=== PATIENT | male | born 1995 | race Caucasian/White ===

== ENCOUNTER 2017-07-20 06:05 | Emergency (ER) | payer OTHER ==
[2017-07-20 06:47] VITALS: BMI 25.7
--- NOTE | 2017-07-20 07:22 | PDOC ---
History of Present Illness - General Chief Complaint: Pain Stated Complaint: EAR AND JAR PAIN Time Seen by Provider: 07/20/17 07:07 - History of Present Illness Initial Comments: 07/20/17 07:22 Mr. 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 He reports the pain as 8/10 and says that he has had this one other time before when he was 19 (3 years ago). He reports being admitted for this problem previously. He also reports 5 episodes of nausea with vomiting this morning. Also endorses chills this AM. The patient denies chest pain, shortness of breath, and headache. Denies diarrhea and constipation. Denies dysuria, frequency, urgency and hematuria. Allergies: Denies Past surgical history:Denies Social history: 1/2 ppd Past History - Past Medical History Allergies/Adverse Reactions: Allergies Allergy/AdvReac Type Severity Reaction Status Date / Time No Known Allergies Allergy Verified 07/20/17 06:44 Home Medications: Ambulatory Orders Amoxicillin/Potassium Clav [Augmentin 875-125 Tablet] 1 each PO BID #20 tablet 07/20/17 Ciprofloxacin HCl/Dexameth [Ciprodex Otic Suspension] 4 drop OS BID #1 bottle Psychiatric Problems: Yes (bipolar and depression) - Suicide/Smoking/Psychosocial Hx Smoking History: Never smoked Have you smoked in the past 12 months: No Number of Cigarettes Smoked Daily: 10 Information on smoking cessation initiated: No Hx Alcohol Use: No Drug/Substance Use Hx: No Review of Systems - Review of Systems Comments:: 07/20/17 07:22 GENERAL/CONSTITUTIONAL: +Endorses fever /chills. No weakness. HEAD, EYES, EARS, NOSE AND THROAT: +Left ear pain with clear discharge and Left jaw pain. No change in vision. No sore throat. CARDIOVASCULAR: No chest pain or shortness of breath RESPIRATORY: No cough, wheezing, or hemoptysis. GASTROINTESTINAL: + Endorses nausea/ vomiting (5x), no diarrhea or constipation. GENITOURINARY: No dysuria, frequency, or change in urination. MUSCULOSKELETAL: No joint or muscle swelling or pain. No back pain. SKIN: No rash NEUROLOGIC: No headache, vertigo, loss of consciousness, or change in strength/ sensation. ENDOCRINE: No increased thirst. No abnormal weight change HEMATOLOGIC/LYMPHATIC: No anemia, easy bleeding, or history of blood clots. ALLERGIC/IMMUNOLOGIC: No hives or skin allergy. *Physical Exam - Vital Signs Last Vital Signs Temp Pulse Resp BP Pulse Ox 98.6 F 75 14 139/84 100 07/20/17 06:44 07/20/17 06:44 07/20/17 06:44 07/20/17 06:44 07/20/17 06:44 - Physical Exam Comments: 07/20/17 07:22 GENERAL: Awake, alert, and fully oriented, in no acute distress HEAD: No signs of trauma, normocephalic, atraumatic EYES: PERRLA, EOMI, sclera anicteric, conjunctiva clear ENT: +Some swelling around L mandible. Some swelling around Auricles normal inspection, hearing grossly normal, nares patent, oropharynx clear without exudates. Moist mucosa NECK: Normal ROM, supple, no lymphadenopathy, JVD, or masses LUNGS: No distress, speaks full sentences, clear to auscultation bilaterally HEART: Regular rate and rhythm, normal S1 and S2, no murmurs, rubs or gallops, peripheral pulses normal and equal bilaterally. ABDOMEN: Soft, nontender, normoactive bowel sounds. No guarding, no rebound. No masses EXTREMITIES: Normal inspection, Normal range of motion, no edema. No clubbing or cyanosis. NEUROLOGICAL: Cranial nerves II through XII grossly intact. Normal speech, normal gait, no focal sensorimotor deficits SKIN: Warm, Dry, normal turgor, no rashes or lesions noted. ED Treatment Course - LABORATORY CBC & Chemistry Diagram: 07/20/17 07:45 07/20/17 07:45 Medical Decision Making - Medical Decision Making Patient history concerning for mastoiditis with history of 1 week drainage and severe ear/jaw pain reported 06/04. CT ordered revealed otitis externa without abscess. Will d/c with follow up to [facility] appt for 2 days. Appt. made with them. *DC/Admit/Observation/Transfer Diagnosis at time of Disposition: Otitis externa Qualifiers: Otitis externa type: unspecified type Chronicity: acute Laterality: left Qualified Code(s): H60.502 - Unspecified acute noninfective otitis externa, left ear - Discharge Dispostion Disposition: HOME - Prescriptions Prescriptions: Amoxicillin/Potassium Clav [Augmentin 875-125 Tablet] 1 each PO BID #20 tablet Ciprofloxacin HCl/Dexameth [Ciprodex Otic Suspension] 4 drop OS BID #1 bottle - Patient Instructions Printed Discharge Instructions: DI for Otitis Externa
[2017-07-20] MEDS ORDERED: ONDANSETRON 4 MG/2 ML VIAL IVPUSH ONE (07:25)
[2017-07-20] MEDS ORDERED: SODIUM CHLORIDE 1,000 ML IV STA (07:27)
[2017-07-20] MEDS ORDERED: ONDANSETRON 4 MG TABLET PO ONE (07:28)
[2017-07-20] MEDS ORDERED: KETOROLAC TROMETHAMINE 10 MG TABLET PO ONE (07:29)
[2017-07-20] MEDS ORDERED: morphine CARPU-JECT 4 MG/1 ML DISP.SYRIN IVPUSH ONE (07:50)
[2017-07-20] MEDS ORDERED: ONDANSETRON *ODT* 4 MG TABLET ONE (07:51)
[2017-07-20] MEDS ORDERED: morphine CARPU-JECT 4 MG/1 ML DISP.SYRIN ONE (07:54)
[2017-07-20 08:01] LABS: BASOPHIL 0.3 % (0-2.0); EOSINOPHIL 0.4 % (0-4.5); MCH 29.2 pg (25.7-33.7); MCHC 33.2 g/dl (32.0-35.9); MEAN CELL VOLUME 88.2 fl (80-96); MEAN PLT VOLUME 7.5 fl (7.5-11.1); NEUTROPHILS 76.2 % (42.8-82.8); PLATELET COUNT 321 K/MM3 (134-434); RDW 14.1 % (11.9-15.9); WHITE BLOOD COUNT 12.2 K/mm3 (4.0-10.0)
[2017-07-20 08:20] LABS: ALBUMIN 3.6 g/dl (3.4-5.0); ALK PHOS 189 U/L (45-117); ANION GAP 3 (8-16); BILIRUBIN,TOTAL 0.5 mg/dL (0.2-1.0); CALCIUM 8.7 mg/dL (8.5-10.1); CO2 32 mmol/L (21-32); CREATININE 0.8 mg/dL (0.7-1.3); GLUCOSE,RANDOM 108 mg/dL (74-106); SGOT/AST 236 U/L (15-37); TOT PROT 7.4 g/dl (6.4-8.2)
[2017-07-20 08:29] LABS: SGPT/ALT 787 U/L (12-78)
[2017-07-20] MEDS ORDERED: AMOX TR/POT CLAV 875MG/125MG TABLETS (FP) PO ONE (10:55)
[2017-07-20] MEDS ORDERED: AMOX TR/POT CLAV 875MG/125MG TABLETS (FP) ONE (11:08)
[2017-07-20 13:54] VITALS: BP 131/73; PULSE 98; TEMP 99.5
== END 2017-07-20 13:37 | disposition home or self-care (01) ==
LOC: JER 06:05
PROC: 3E0337Z Introduction of Electrolytic and Water Balance Substance into Peripheral Vein, Percutaneous Approach (ICD-10-PCS; principal; 2017-07-20)
PROC: 3E033GC Introduction of Other Therapeutic Substance into Peripheral Vein, Percutaneous Approach (ICD-10-PCS; 2017-07-20)
PROC: 3E033NZ Introduction of Analgesics, Hypnotics, Sedatives into Peripheral Vein, Percutaneous Approach (ICD-10-PCS; 2017-07-20)
DX: H60.502 Unspecified acute noninfective otitis externa, left ear (principal)
CPT/HCPCS: 36415; 70470-TC; 70481-TC; 80053; 83605; 85025; 85651; 87040; 96361; 96374; 99282-25

== ENCOUNTER 2017-07-24 19:43 | Emergency (ER) | payer OTHER ==
[2017-07-24 19:48] VITALS: BP 146/94; PULSE 94; TEMP 98.2; BMI 20.9
--- NOTE | 2017-07-24 20:34 | PDOC ---
History of Present Illness - General Chief Complaint: Ear Problem Stated Complaint: EAR PAIN Time Seen by Provider: 07/24/17 19:50 - History of Present Illness Initial Comments: 07/24/17 20:21 CHIEF COMPLAINT: ear pain HISTORY OF PRESENT ILLNESS: 22 yo M with hx of HIV (last VL undetectable 6 mo ago) presents to fast track with pain to R ear. 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 Patient reports that he now has severe pain to his RIGHT ear that is "ten times worse" than it was four days ago, and he has severe pain to his R jaw. PAST MEDICAL HISTORY: HIV FAMILY HISTORY: Denies SOCIAL HISTORY: Denies tobacco, alcohol, illicit drug use. SURGICAL HISTORY: Denies ALLERGIES: No known drug allergies REVIEW OF SYSTEMS General/Constitutional: Denies fever or chills. Denies weakness, weight change. HEENT: R ear pain extending behind ear and to jaw. Denies change in vision. Denies ear pain or discharge. Denies sore throat. Cardiovascular: Denies chest pain or shortness of breath. Respiratory: Denies cough, wheezing, or hemoptysis. Gastrointestinal: Denies nausea, vomiting, diarrhea or constipation. Denies rectal bleeding. Genitourinary: Denies dysuria, frequency, or change in urination. Musculoskeletal: Denies joint or muscle swelling or pain. Denies neck or back pain. Skin and breasts: Denies rash or easy bruising. Neurologic: Denies headache, vertigo, loss of consciousness, or loss of sensation. PHYSICAL EXAM General Appearance: Well-appearing, appropriately dressed. No apparent distress , no intoxication. HEENT: Marked erythema and swelling to R auditory canal with marked tenderness posterior to ear as well as to jaw. R TM not visible due to severe swelling of canal. L ear TM mildly erythematous with minimal swelling of L auditory canal. EOMI, PERRLA, normal ENT inspection, normal voice , pharynx normal. No conjunctival pallor. No photophobia, scleral icterus. Respiratory/Chest: Lungs CTAB. Cardiovascular: RRR. S1, S2. Musculoskeletal/Extremities: Normal inspection. FROM of all extremities, normal capillary refill. Pelvis Stable. No CVA tenderness. No tenderness to extremities, pedal edema, swelling, erythema or deformity. Integumentary: Appropriate color, dry, warm. No cyanosis, erythema, jaundice or rash Neurologic: cleat thrower II-XII intact. Fully oriented, alert. Appropriate mood/affect. Motor strength 5/5. No appreciable EOM palsy, facial droop or sensory deficit. 07/24/17 21:10 Past History - Past Medical History Allergies/Adverse Reactions: Allergies Allergy/AdvReac Type Severity Reaction Status Date / Time No Known Allergies Allergy Verified 07/24/17 19:48 Home Medications: Ambulatory Orders Abacavir/Dolutegravir/Lamivudi [Triumeq Tablet] 1 each PO ASDIR 07/24/17 Amoxicillin/Potassium Clav [Augmentin 875-125 Tablet] 1 each PO BID #20 tablet 07/24/17 Psychiatric Problems: Yes (bipolar and depression) - Suicide/Smoking/Psychosocial Hx Smoking History: Never smoked Have you smoked in the past 12 months: No Number of Cigarettes Smoked Daily: 10 Hx Alcohol Use: No Drug/Substance Use Hx: No *Physical Exam - Vital Signs Last Vital Signs Temp Pulse Resp BP Pulse Ox 98.2 F 94 H 18 146/94 99 07/24/17 19:44 07/24/17 19:44 07/24/17 19:44 07/24/17 19:44 07/24/17 19:44 ED Treatment Course - RADIOLOGY Radiology Studies Ordered: Category Date Time Status TEMPORAL BONES CT W/O CONTRAST [CT] Stat CT Scan 07/24/17 20:15 Ordered Medical Decision Making - Medical Decision Making 07/24/17 20:34 22 yo M with hx of HIV presents to fast track with pain to R ear. -repeat temporal bone CT eval for mastoiditis of R ear -Augmentin po 07/24/17 21:12 CT with evidence of effusion to b/l mastoid air cells. Rx for Augmentin resent to pharmacy. Advised patient to f/u with ENT and of signs and symptoms for return to ER; patient verbalized understanding and agrees to plan. *DC/Admit/Observation/Transfer Diagnosis at time of Disposition: Otitis externa Qualifiers: Otitis externa type: unspecified type Chronicity: acute Laterality: bilateral Qualified Code(s): H60.503 - Unspecified acute noninfective otitis externa, bilateral Otitis media Qualifiers: Otitis media type: other nonsuppurative Chronicity: acute Laterality: bilateral - Discharge Dispostion Disposition: HOME Condition at time of disposition: Stable Admit: No - Prescriptions Prescriptions: Amoxicillin/Potassium Clav [Augmentin 875-125 Tablet] 1 each PO BID #20 tablet - Referrals Referrals: Sergo Mensah MD [Staff Physician] - - Patient Instructions Printed Discharge Instructions: Middle Ear Infection Additional Instructions: Please take medication as prescribed. Follow up with ENT by the end of next week for further evaluation and monitoring if your ear infection. If you develop any fever, chills, nausea, vomiting, diarrhea, or the pain in your ear does not improve or worsens, please return to the ER immediately.
[2017-07-24] MEDS ORDERED: IBUPROFEN 600 MG TABLET (FP) PO ONE (21:00)
[2017-07-24] MEDS ORDERED: AMOX TR/POT CLAV 875MG/125MG TABLETS (FP) PO ONE (21:01)
[2017-07-24] MEDS ORDERED: AMOX TR/POT CLAV 875MG/125MG TABLETS (FP) ONE (21:09)
== END 2017-07-24 21:18 | disposition home or self-care (01) ==
LOC: JERFT 19:43
DX: H60.503 Unspecified acute noninfective otitis externa, bilateral (principal)
CPT/HCPCS: 70480-TC; 99281-25

== ENCOUNTER 2019-01-19 21:04 | Emergency (ER) | payer OTHER ==
[2019-01-19 21:15] VITALS: BP 131/74; PULSE 82; TEMP 98.3; BMI 26.3
--- NOTE | 2019-01-19 21:17 | PDOC ---
Rapid Medical Evaluation Time Seen by Provider: 01/19/19 21:15 Medical Evaluation: Allergies Allergy/AdvReac Type Severity Reaction Status Date / Time No Known Allergies Allergy Verified 01/09/18 15:46 01/19/19 21:15 Pt presents to the ED with R foot pain. Pt states it is worse when he is working out. Denies trauma to the foot Exam: ambulatory Orders: X-ray Pt to proceed to ED for further evaluation Discharge Disposition - Diagnosis Foot pain, right - Referrals - Patient Instructions - Post Discharge Activity
--- NOTE | 2019-01-19 22:13 | PDOC ---
History of Present Illness - General Chief Complaint: Pain Stated Complaint: RIGHT MIDDLE TOE PAIN Time Seen by Provider: 01/19/19 21:15 - History of Present Illness Initial Comments: 01/19/19 22:11 23-year-old male presents for evaluation of atraumatic right second and third toe pain 5 days without systemic symptoms. 01/19/19 22:12 HIV + Past History - Past Medical History Allergies/Adverse Reactions: Allergies Allergy/AdvReac Type Severity Reaction Status Date / Time No Known Allergies Allergy Verified 01/19/19 21:15 Home Medications: Ambulatory Orders Bictegrav/Emtricit/Tenofov Ala [Biktarvy 50-200-25 mg Tablet] 1 each PO DAILY # 30 tablet 12/02/18 Asthma: No (h/o wheezing at night when smoking) COPD: No DVT: No Diabetes: No HTN: No Liver Disease: Yes Psychiatric Problems: Yes (bipolar and depression) Thyroid Disease: No - Suicide/Smoking/Psychosocial Hx Smoking History: Never smoked Have you smoked in the past 12 months: Yes Number of Cigarettes Smoked Daily: 20 'Breaking Loose' booklet given: 02/17/18 Hx Alcohol Use: No Drug/Substance Use Hx: Yes (MARIJUANA) Substance Use Type: Marijuana (continues to use marijuana) Hx Substance Use Treatment: No Review of Systems - Review of Systems Musculoskeletal: Yes: Joint Pain *Physical Exam - Vital Signs Last Vital Signs Temp Pulse Resp BP Pulse Ox 98.3 F 82 18 131/74 97 01/19/19 21:13 01/19/19 21:13 01/19/19 21:13 01/19/19 21:13 01/19/19 21:13 - Physical Exam Comments: 01/19/19 22:11 Right foot and toe skin color and temperature are normal range of motion is full and nonpainful. There is tenderness about the second and third MTPJ's of the right foot no gross sensorimotor deficits neurovascularly intact. Medical Decision Making - Medical Decision Making 01/19/19 22:12 X-rays are negative for fracture trauma or destructive process days radiodensity at the medial aspect of the distal phalanx of the first toe. Patient was informed and will follow-up with podiatry. This is metatarsalgia. Weight-bear as tolerated follow-up with podiatry Tylenol and Motrin for pain. *DC/Admit/Observation/Transfer Diagnosis at time of Disposition: Foot pain, right, Metatarsalgia - Discharge Dispostion Disposition: HOME Condition at time of disposition: Stable Decision to Admit order: No - Referrals Referrals: Ivan Samayoa [Non Staff, Medical] - Kandi Lua DPM [Non Staff, Medical] - Chetan Guthrie [Non Staff, Medical] - Sergo Levi MD [Non Staff, Medical] - Angelina Albert MD [Non Staff, Medical] - Jada Santiago MD [Non Staff, Medical] - George Hale MD [Non Staff, Medical] - Lexi Caal [Non Staff, Medical] - Jeffery Graham DPM [Non Staff, Medical] - Fidel Aguilar MD [Staff Physician] - - Patient Instructions Additional Instructions: Tylenol and Motrin as directed for pain. Please follow-up with podiatry in 1-2 days for further evaluation and treatment options. Avoid strenuous activity until he follow-up with podiatry. - Post Discharge Activity
== END 2019-01-19 22:24 | disposition home or self-care (01) ==
LOC: JERFT 21:04
DX: M77.41 Metatarsalgia, right foot (principal); Z86.59 Personal history of other mental and behavioral disorders; F17.210 Nicotine dependence, cigarettes, uncomplicated
CPT/HCPCS: 73630-TC-RT-FY; 99281-25

== ENCOUNTER 2021-06-24 14:42 | Inpatient (IN) | payer OTHER ==
[2021-06-24 16:04] VITALS: BMI 26.2
[2021-06-24] MEDS ORDERED: MENTHOL/PHENOL 1 EACH UD MM PRN (16:50)
[2021-06-24] MEDS ORDERED: ONDANSETRON *ODT* 4 MG TABLET SL PRN (16:50)
[2021-06-24] MEDS ORDERED: methaDONE HCL 10 MG TABLET (FOR DETOX USE ONLY) PO ONE (16:50)
[2021-06-24] MEDS ORDERED: MAGNESIUM HYDROX 2400MG/30ML ORAL SUSPENSION 30 ML CUP PO PRN (16:50)
[2021-06-24] MEDS ORDERED: MAG HYDROX/AL HYDROX/SIMETH 30 ML UNIT-DOSE CUP PO PRN (16:50)
[2021-06-24] MEDS ORDERED: cloNIDine HCL 0.1 MG TABLET PO PRN (16:50)
[2021-06-24] MEDS ORDERED: BISMUTH SUBSALICYLATE 524 MG/30 ML PO PRN (16:50)
[2021-06-24] MEDS ORDERED: ACETAMINOPHEN 325 MG TABLET (FP) PO PRN (16:50)
[2021-06-24] MEDS ORDERED: MAGNESIUM CITRATE 300 ML BOTTLE PO PRN (16:50)
[2021-06-24] MEDS: hydrOXYzine PAMOATE 25 MG CAPSULE (FP) PO PRN ×2 (18:36→22:25)
[2021-06-24] MEDS: THIAMINE HCL 100 MG TABLET (FP) PO SCH (22:24)
[2021-06-24] MEDS: MELATONIN 5 MG TABLETS PO SCH (22:24)
[2021-06-25] MEDS ORDERED: methaDONE HCL 10 MG TABLET (FOR DETOX USE ONLY) ONE (09:29)
[2021-06-25] MEDS: PRENATAL VITAMINS W/ FOLIC ACID TABLET (FP) PO SCH (10:32)
[2021-06-25] MEDS: hydrOXYzine PAMOATE 25 MG CAPSULE (FP) PO PRN ×2 (10:35→17:25)
[2021-06-25 10:38] LABS: HEMATOCRIT 40.8 % (35.4-49); HEMOGLOBIN 13.6 GM/dL (11.7-16.9); MCH 28.5 pg (25.7-33.7); MCHC 33.4 g/dl (32.0-35.9); MEAN CELL VOLUME 85.2 fl (80-96); MEAN PLT VOLUME 7.5 fl (7.5-11.1); PLATELET COUNT 429 10^3/uL (134-434); RBC 4.79 M/mm3 (4.00-5.60); RDW 13.3 % (11.9-15.9); WHITE BLOOD COUNT 7.6 K/mm3 (4.0-10.0)
[2021-06-25 10:51] LABS: BILIRUBIN,TOTAL 0.5 mg/dL (0.2-1)
[2021-06-25 10:55] LABS: CALCIUM 8.7 mg/dL (8.5-10.1)
[2021-06-25 10:56] LABS: ALBUMIN 3.1 g/dl (3.4-5.0); BLOOD UREA NITROGEN 16.2 mg/dL (7-18)
[2021-06-25 10:57] LABS: TOT PROT 6.6 g/dl (6.4-8.2)
[2021-06-25 10:59] LABS: CREATININE 0.9 mg/dL (0.55-1.3)
[2021-06-25] MEDS: diazePAM 5 MG TABLET PO SCH ×2 (17:22→22:12)
[2021-06-25] MEDS: BICTEGRAV/EMTRICIT/TENOFOV (BIKTARVY) 50-200-25 MG TABLET PO SCH (17:22)
[2021-06-25] MEDS: NICOTINE 10 MG CARTRIDGE (INHALER) IH PRN (17:26)
[2021-06-25] MEDS: THIAMINE HCL 100 MG TABLET (FP) PO SCH (22:13)
[2021-06-25] MEDS: METHOCARBAMOL 500 MG TABLET PO PRN (22:13)
[2021-06-25] MEDS: MELATONIN 5 MG TABLETS PO SCH (22:13)
[2021-06-26] MEDS: diazePAM 5 MG TABLET PO SCH ×4 (06:32→22:08)
[2021-06-26] MEDS: METHOCARBAMOL 500 MG TABLET PO PRN ×2 (06:33→22:08)
[2021-06-26] MEDS: ACETAMINOPHEN 325 MG TABLET (FP) PO PRN (06:33)
[2021-06-26] MEDS ORDERED: methaDONE HCL 10 MG TABLET (FOR DETOX USE ONLY) PO ONE (10:00)
[2021-06-26] MEDS: PRENATAL VITAMINS W/ FOLIC ACID TABLET (FP) PO SCH (10:17)
[2021-06-26] MEDS: BICTEGRAV/EMTRICIT/TENOFOV (BIKTARVY) 50-200-25 MG TABLET PO SCH (10:18)
[2021-06-26] MEDS ORDERED: PENICILLIN G BENZATHINE 2,400,000 UNIT/4 ML PFS IM ONE (15:01)
[2021-06-26] MEDS: THIAMINE HCL 100 MG TABLET (FP) PO SCH (22:08)
[2021-06-26] MEDS: MELATONIN 5 MG TABLETS PO SCH (22:08)
[2021-06-27] MEDS: diazePAM 5 MG TABLET PO SCH ×3 (05:26→22:18)
[2021-06-27] MEDS: IBUPROFEN 400 MG TABLET (FP) PO PRN ×2 (05:27→17:47)
[2021-06-27] MEDS ORDERED: methaDONE HCL 10 MG TABLET (FOR DETOX USE ONLY) ONE (08:56)
[2021-06-27] MEDS: BICTEGRAV/EMTRICIT/TENOFOV (BIKTARVY) 50-200-25 MG TABLET PO SCH (10:10)
[2021-06-27] MEDS: PRENATAL VITAMINS W/ FOLIC ACID TABLET (FP) PO SCH (10:10)
[2021-06-27] MEDS: diazePAM 5 MG TABLET PO PRN ×2 (10:11→17:45)
[2021-06-27] MEDS: ACETAMINOPHEN 325 MG TABLET (FP) PO PRN (10:11)
[2021-06-27] MEDS: MELATONIN 5 MG TABLETS PO SCH (22:18)
[2021-06-27] MEDS: METHOCARBAMOL 500 MG TABLET PO PRN (22:18)
[2021-06-27] MEDS: THIAMINE HCL 100 MG TABLET (FP) PO SCH (22:18)
[2021-06-27] MEDS: NICOTINE 10 MG CARTRIDGE (INHALER) IH PRN (22:28)
[2021-06-28] MEDS: diazePAM 5 MG TABLET PO SCH ×2 (05:38→17:36)
[2021-06-28] MEDS: METHOCARBAMOL 500 MG TABLET PO PRN ×3 (05:39→19:32)
[2021-06-28] MEDS ORDERED: methaDONE HCL 10 MG TABLET (FOR DETOX USE ONLY) PO ONE (10:00)
[2021-06-28] MEDS: PRENATAL VITAMINS W/ FOLIC ACID TABLET (FP) PO SCH (10:09)
[2021-06-28] MEDS: BICTEGRAV/EMTRICIT/TENOFOV (BIKTARVY) 50-200-25 MG TABLET PO SCH (10:09)
[2021-06-28] MEDS: diazePAM 5 MG TABLET PO PRN (10:12)
[2021-06-28] MEDS: hydrOXYzine PAMOATE 25 MG CAPSULE (FP) PO PRN ×2 (15:30→22:22)
[2021-06-28] MEDS: MELATONIN 5 MG TABLETS PO SCH (22:22)
[2021-06-28] MEDS: THIAMINE HCL 100 MG TABLET (FP) PO SCH (22:22)
[2021-06-28] MEDS: IBUPROFEN 400 MG TABLET (FP) PO PRN (22:22)
[2021-06-28] MEDS: NICOTINE 10 MG CARTRIDGE (INHALER) IH PRN (22:56)
[2021-06-29] MEDS ORDERED: diazePAM 5 MG TABLET PO ONE (06:00)
[2021-06-29] MEDS: METHOCARBAMOL 500 MG TABLET PO PRN ×2 (06:04→12:29)
[2021-06-29 10:18] VITALS: BP 133/87; PULSE 95; TEMP 97.5
[2021-06-29] MEDS: PRENATAL VITAMINS W/ FOLIC ACID TABLET (FP) PO SCH (10:28)
[2021-06-29] MEDS: BICTEGRAV/EMTRICIT/TENOFOV (BIKTARVY) 50-200-25 MG TABLET PO SCH (10:28)
== END 2021-06-29 12:46 | disposition home or self-care (01) | DRG 773 ==
LOC: YASAS 14:42 → Y3N 16:37
PROVIDERS: ADMIT Allergy & Immunology; ATTEND Allergy & Immunology
PROC: HZ2ZZZZ Detoxification Services for Substance Abuse Treatment (ICD-10-PCS; principal; 2021-06-24)
DX: F11.23 Opioid dependence with withdrawal (principal); F13.10 Sedative, hypnotic or anxiolytic abuse, uncomplicated; F17.210 Nicotine dependence, cigarettes, uncomplicated; F19.24 Other psychoactive substance dependence with psychoactive substance-induced mood disorder; F41.9 Anxiety disorder, unspecified; Z21 Asymptomatic human immunodeficiency virus [HIV] infection status; A53.0 Latent syphilis, unspecified as early or late; Z91.410 Personal history of adult physical and sexual abuse
CPT/HCPCS: 36415; 80053; 85027; 86593; 86780; 93005; 93010; C9803; U0003; U0005

== ENCOUNTER 2021-10-15 15:26 | Emergency (ER) | payer OTHER ==
[2021-10-15 16:02] VITALS: BMI 24.4
[2021-10-15 19:17] VITALS: BP 127/78; PULSE 89; TEMP 98.3
== END 2021-10-15 19:17 | disposition home or self-care (01) ==
LOC: JER 15:26
DX: B34.9 Viral infection, unspecified (principal)
CPT/HCPCS: 71046-TC-FY; 87804; 99284-25; C9803; U0003; U0005